=== PATIENT | female | born 1975 | race Caucasian/White ===

== ENCOUNTER 2021-06-10 13:00 | Emergency (ER) | payer OTHER ==
[2021-06-10] MEDS ORDERED: IBUPROFEN600 MG PO (15:34)
[2021-06-10] MEDS ORDERED: COMFORT PAC-CYC10 MG MC (15:34)
== END 2021-06-10 16:40 | disposition home or self-care (01) ==
LOC: ER1 13:00
DX: M54.6 Pain in thoracic spine (principal); M54.2 Cervicalgia; M54.5 Low back pain; R07.81 Pleurodynia; V49.50XA Passenger injured in collision with unspecified motor vehicles in traffic accident, initial encounter
CPT/HCPCS: 71046; 72125; 72128; 72131; 73060; 73502; 99284

== ENCOUNTER → 2021-11-06 | Outpatient (CLI) | payer MEDICARE ==
[~2021-11-06] MED LIST: COMFORT PAC-CYC10 MG MC; IBUPROFEN600 MG PO
== END ==
LOC: KOH-I 11-05 11:15
DX: M47.22 Other spondylosis with radiculopathy, cervical region (principal)
CPT/HCPCS: 72141